=== PATIENT | female | born 1975 | race Caucasian/White ===

== ENCOUNTER 2024-09-10 12:18 | Emergency (ER) | payer OTHER, SELFPAY ==
[2024-09-10 12:21] VITALS: BP 127/94
[2024-09-10 12:56] LABS: Urine Albumin Negative (Neg - Trace); Urine Bilirubin Negative (Negative); Urine Character Clear (Clear); Urine Color Yellow; Urine Glucose Negative (Negative); Urine Ketone Negative (Negative); Urine Leukocyte Negative (Negative); Urine Nitrite Negative (Negative); Urine Occult Blood 1+ (Negative); Urine Urobilinogen Negative (Neg - 1+)
[2024-09-10 13:06] LABS: Urine Bacteria Few (Negative); Urine Red Blood Cell 0-2 /HPF (0-2); Urine White Cell 0-2 /HPF (0-5)
--- NOTE | 2024-09-10 15:16 | ED.GENMED ---
History of Present Illness
General
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
Source: patient
Exam Limitations: none
Time Seen by Provider: 09/10/24 15:05
History of Present Illness
History of Present Illness:
49-year-old female presents complaining of full bladder sensation with inability urinate. She woke up having the urge to urinate but was unable to. She stated took several hours at home to move some urine. She still felt full and her family
doctor sent her in for an ultrasound. Since waiting here in the waiting room she has had more urine come out and she feels slightly improved but still not suprapubic discomfort. She notes she recently finished her menstrual cycle which is heavier
than usual. She denies any blood in the urine or fever. No flank pain nausea or vomiting. She is healthy otherwise. No prior surgical history. She is prone to UTIs
Phy Exam
Physical Exam
Physical Exam:
General: Well-appearing female no acute respiratory distress
HEENT: Normocephalic atraumatic
Heart: Regular rate and rhythm
Lungs: Clear no wheeze
Abdomen soft tender to the suprapubic region no guarding or rebound no significant distention
Extremities: No cyanosis
Course
Orders/Labs/Results
Orders:
Orders
09/10/24 12:37
Urinalysis Reflex To Culture Urgent
Date Specimen was Collected: 09/10/24
Time Specimen was Collected: 12:24
Urine Microscopic Reflex Cult Urgent
09/10/24 15:14
US Bladder [US Urinary Bladder Only] Urgent
Comment:
Reason For Exam: dysuria
US Pelvis Only (non-obstetric) Urgent
Reason For Exam: pelvic pain, heavy periods
09/10/24 18:26
Williamson Placement- Treatment ONCE
Reason for insertion: Acute Retention
Abnormal Lab Results
09/10/24
12:37
Ur Occult Blood Reflex 1+ A
(Negative)
Urine Bacteria (Reflex) Few A
(Negative)
Vital Signs
Initial and Last Documented VS:
Initial Vital Signs
Temp Pulse Resp BP Pulse Ox
98.9 F 81 18 127/94 100
09/10/24 12:21 09/10/24 12:21 09/10/24 12:21 09/10/24 12:21 09/10/24 12:21
Last Documented Vital Signs
Temp Pulse Resp BP Pulse Ox
98.9 F 85 18 117/66 100
09/10/24 12:21 09/10/24 18:00 09/10/24 12:21 09/10/24 17:43 09/10/24 15:18
MDM/Problems Addressed
Differential Diagnosis Includes:
Difficulty voiding with full bladder sensation and heavier than normal menstrual cycles. Consider UTI versus bladder outlet obstruction versus fibroid
Urinalysis through triage shows no overwhelming signs of infection. Will order ultrasound of the bladder and pelvis.
*Pulse Oximetry
SaO2: 100
Oxygen Mode of Delivery: Room air
Patient hypoxic: no
*Critical Care Note
Total Time (30-74mins, 75-104mins- exclusive of procedures): Not Applicable
Update Note
Update Note:
Ultrasound pelvis showed fibroid. Patient was unable to void on her own and ultrasound and showed around 367mL in the bladder. She was visit was soon after the ultrasound and still was unable to urinate. Given acute urinary retention we placed a
Williamson catheter. She drained about 800 mL out of the Williamson catheter and is feeling much better. Will advise she follow-up with urology for further evaluation
ED Attending Note
-
Portions of this chart may have been created with voice recognition software.� Occasional wrong word or��sound alike� substitutions may have occurred due to the inherent limitations of voice recognition software.
Discharge Plan
Departure
Patient Disposition: Home (Routine Discharge)
Date of Disposition: 09/10/24
Time of Disposition: 19:56
Patient with high blood pressure during this ER visit?: No
Discharge Problem:
Acute urinary retention
Instructions: Urinary Retention (DC), How to care for a urinary catheter
Referrals:
MARYJO SCALES MD [Family Provider, Internal Medicine]
Kwame Dacosta MD [Active, Urology]
Activity Restrictions/Additional Instructions:
Please follow-up with urology for next available appointment. Return if worse otherwise
Interventions
Interventions:
*Risk Screen - Suicide Last Done: 09/10/24 12:21
*General Assessment Last Done: 09/10/24 12:21
*Neglect/Abuse Screening Last Done: 09/10/24 12:21
*ED- Fall Risk Assessment Last Done: 09/10/24 15:22
*ED COVID-19 Vaccine History Last Done: 09/10/24 15:22
ED-Female Genitourinary Assessment Last Done: 09/10/24 15:24
Discharge Date and Time
Print Language: DANISH
[2024-09-10 15:19] VITALS: BMI 24.6
[2024-09-10 15:31] VITALS: BP 124/71
[2024-09-10 17:43] VITALS: BP 117/66
[2024-09-10 20:27] VITALS: BP 120/78
== END 2024-09-10 20:30 | disposition home or self-care (01) ==
LOC: EMR 12:18
PROVIDERS: Emergency Medicine; EMERGENCY PHYSICIAN Emergency Medicine; FAMILY PHYSICIAN Student in an Organized Health Care Education/Training Program
DX: R33.9 Retention of urine, unspecified (principal); D25.9 Leiomyoma of uterus, unspecified
CPT/HCPCS: 51702; 99284; 76856; 76857; 81003; 81015